=== PATIENT | male | born 1965 | race Asian ===

== ENCOUNTER 2016-09-27 15:26 | Inpatient (IN) | payer OTHER ==
[~2016-09-27] VITALS: Ht 170.2 cm; Wt 54.4 kg
[2016-09-27 16:34] LABS: UA SPECIFIC GRAVITY >=1.030 (1.005-1.035); microscopic required? YES; urine erythrocyte 2+ (NEGATIVE)
[2016-09-27 16:46] LABS: BILIRUBIN TOTAL 6.23 mg/dL (0.20-1.00); CALCIUM 7.5 mg/dL (8.5-10.1); CARBON DIOXIDE 21.3 mmol/L (21-32); CREATININE SERUM 2.2 mg/dL (0.7-1.3)
[2016-09-27 16:49] LABS: ALBUMIN 2.2 g/dL (3.4-5.0); TOTAL PROTEIN, SERUM 5.5 g/dL (6.4-8.2)
[2016-09-27 16:50] LABS: POTASSIUM SERUM 6.2 mmol/L (3.5-5.1)
[2016-09-27 16:54] LABS: BASOPHIL % 0 % (0-2); PLATELET COUNT 122 x10^3mcL (130-400)
[2016-09-27] MEDS ORDERED: MORPHINE SU (18:11)
[2016-09-27 19:13] LABS: CHOLESTEROL/HDL RATIO 15.2
[2016-09-27 19:14] LABS: T3 TOTAL 0.02 ng/mL
[2016-09-27 19:19] LABS: FREE T4 0.17 ng/dL (0.76-1.46); FREE THYROXINE INDEX 0.2 ug/dL (1.4-4.5); T4(THYROXINE) 0.6 ug/dL (4.7-13.3)
[2016-09-27 19:32] VITALS: BP 53/44
[2016-09-27 19:33] VITALS: BP 73/49
[2016-09-27 23:30] VITALS: BP 61/37
[2016-09-28 03:19] VITALS: BP 55/33
[2016-09-28 07:00] VITALS: BP 46/29
[2016-09-28 07:45] VITALS: Ht 170.2 cm; Wt 54.4 kg
== END 2016-09-28 08:10 | disposition expired | DRG 435 ==
LOC: ED 15:26 → IC 17:17
PROVIDERS: Emergency Medicine; ADMIT Family Medicine
DX: C22.9 Malignant neoplasm of liver, not specified as primary or secondary (principal); I50.41 Acute combined systolic (congestive) and diastolic (congestive) heart failure; N17.0 Acute kidney failure with tubular necrosis; E43 Unspecified severe protein-calorie malnutrition; B19.10 Unspecified viral hepatitis B without hepatic coma; N39.0 Urinary tract infection, site not specified; E87.1 Hypo-osmolality and hyponatremia; Z68.1 Body mass index [BMI] 19.9 or less, adult; E87.5 Hyperkalemia; D64.9 Anemia, unspecified; E78.5 Hyperlipidemia, unspecified; R80.8 Other proteinuria; E87.8 Other disorders of electrolyte and fluid balance, not elsewhere classified; Z66 Do not resuscitate; Z51.5 Encounter for palliative care
CPT/HCPCS: 83880; 84439; J0696; J1815; J2270; J2543; J3475; J3490; J7040; Q0092